=== PATIENT | male | born 1990 | race Two or more races ===

== ENCOUNTER 2020-04-21 14:02 | Emergency (ER) | payer BC ==
[~2020-04-21] VITALS: Ht 160 cm; Wt 82.6 kg
[2020-04-21] MEDS ORDERED: ACETAMINOPHEN ES 500 MG TABLET PO ONE (14:30)
[2020-04-21] MEDS ORDERED: ACETAMINOPHEN ES 500 MG TABLET ONE (14:30)
[2020-04-21] MEDS ORDERED: IBUPROFEN 600 MG TABLET PO ONE (14:30)
[2020-04-21] MEDS ORDERED: IBUPROFEN 600 MG TABLET ONE (14:31)
[2020-04-21] MEDS ORDERED: LIDOCAINE 1%-EPI 1:100,000 20 ML VIAL ONE (15:07)
[2020-04-21 15:43] VITALS: BP 131/82
== END 2020-04-21 15:44 | disposition home or self-care (01) ==
LOC: ER 14:11
DX: S01.111A Laceration without foreign body of right eyelid and periocular area, initial encounter (principal); S50.11XA Contusion of right forearm, initial encounter; S80.11XA Contusion of right lower leg, initial encounter; R51.9 Headache, unspecified; V19.9XXA Pedal cyclist (driver) (passenger) injured in unspecified traffic accident, initial encounter; Y93.89 Activity, other specified; Y92.89 Other specified places as the place of occurrence of the external cause; Y99.8 Other external cause status
CPT/HCPCS: 12013; 70450; 70486; 72125; 99285; J3490